=== PATIENT | female | born 1960 | race Caucasian/White ===

== ENCOUNTER → 2017-10-13 | Outpatient (CLI) | payer BC ==
[~2017-10-13] MED LIST: ADDERALL20 MG PO; CEPHALEXIN500 M1 PO; COLACE 100100 MG/CAP PO; LEVAQUIN 5500 MG/TA1 PO; LOVENOX 4040 MG/0.4 SQ; OXYCONTIN15 MG; PROZAC 20MG20 MG PO; ROXICODONE 55 MG/TAB PO; ULTRAM 50MG TAB50 MG; ULTRAM 50MG TAB50 MG PO; WELLBUTRIN XL150 MG PO
== END ==
LOC: MC.RAD 07:26
DX: Z12.31 Encounter for screening mammogram for malignant neoplasm of breast (principal)

== ENCOUNTER → 2019-02-01 | Outpatient (CLI) | payer BC | LOC: MC.RAD 07:29 | DX: Z12.31 Encounter for screening mammogram for malignant neoplasm of breast (principal) ==

== ENCOUNTER → 2019-11-10 | Outpatient (CLI) | payer BC | LOC: ZCOL.LAB 15:45 | DX: Z20.828 Contact with and (suspected) exposure to other viral communicable diseases (principal) ==

== ENCOUNTER 2020-08-30 09:25 | Observation (INO) | payer BC ==
[~2020-08-30] VITALS: Ht 162.7 cm; Wt 75.9 kg
[2020-08-30 09:59] LABS: HEMOGLOBIN 10.5 g/dl (12.5-16.0); MEAN CELL VOLUME 86 fl (80.0-100.0); MEAN CORPUSCULAR HEMOGLOBIN 28 pg (27.0-31.0); MEAN CORPUSCULAR HGB CONC 33 g/dl (33.0-37.0); MEAN PLATELET VOLUME 9.4 fl (7.4-10.4); PLATELET COUNT 505 K/mm3 (130-400); RED BLOOD COUNT 3.74 M/mm3 (4.10-5.30); REDCELL DISTRIBUTION WIDTH-CV 13.6 % (11.5-14.5)
[2020-08-30 10:04] LABS: HEMATOCRIT 32.1 % (37.0-47.0)
[2020-08-30 10:06] LABS: INR 1.3 (0.8-3.0); PROTHROMBIN TIME 14.1 SECONDS (9.7-12.8)
[2020-08-30 10:09] LABS: ALANINE AMINOTRANSFERASE 31 U/L (4-34); ALBUMIN 3.3 gm/dL (3.5-5.0); ALKALINE PHOSPHATASE 185 U/L (50-136); ANION GAP 4 mmol/L (7-16); AST,SGOT 91 U/L (15-37); BILIRUBIN,TOTAL 0.8 mg/dL (0.0-1.0); BLOOD UREA NITROGEN 32 mg/dL (7-17); CALCIUM 10.5 mg/dL (8.4-10.2); CARBON DIOXIDE 29 mmol/L (22-30); CHLORIDE 107 mmol/L (98-107); CREATININE, serum 0.89 (0.52-1.25); GLUCOSE 113 mg/dL (74-106); POTASSIUM 3.8 mmol/L (3.4-5.0); SODIUM 139 mmol/L (137-145); TOTAL PROTEIN 7.3 gm/dL (6.4-8.2)
[2020-08-30 10:25] LABS: TROPONIN-I < 0.012 ng/mL (0.000-0.035)
[2020-08-30 10:32] LABS: HYPOCHROMIA 1+; LYMPHOCYTE 12 % (20.0-51.0); NEUTROPHILS 82 % (42.0-75.2); PLATELET ESTIMATE INCREASED (NORMAL)
[2020-08-30 10:34] LABS: ERYTHROCYTE SEDIMENTATION RATE 76 mm/hr (0-30)
[2020-08-30 10:41] LABS: C-REACTIVE PROTEIN 35.1 mg/dL (0.0-0.9)
[2020-08-30] MEDS ORDERED: LASIX 80MG TABL80 MG PO (15:35)
[2020-08-30] MEDS ORDERED: TOPROL XL 25MG25 MG PO (15:35)
[2020-08-30] MEDS ORDERED: K-TAB20 PO (15:35)
[2020-08-30] MEDS ORDERED: ESTRACE0.1 MG/GM VG (15:37)
[2020-08-30 17:54] VITALS: BP 113/61; PULSE 96; TEMP 98.5
--- NOTE | 2020-08-30 18:13 | NUR ---
Pt recently arrived to the floor from ED with her spouse. Pt is alert and oriented although drowsy. She got PRN pain medication as she transferred to her bed the the room by the ED nurse. Dr Singh currently in the room seeing pt
[2020-08-30 19:53] VITALS: BP 112/49; PULSE 94; TEMP 97.7
--- NOTE | 2020-08-30 20:00 | NUR ---
Pt. sitting up in be. Pt. is a&XO3, assessment complete. INT to lt. ac patent. Pt. denies pain or other needs, call light within reach.
[2020-08-30 23:02] LABS: MUCOUS Present /lpf; PH 5 (5-8); SQUAMOUS EPITHELIAL 0-2 /hpf; URINE APPEARANCE Hazy; URINE BACTERIA None Seen /hpf; URINE BILIRUBIN Negative (NEGATIVE); URINE BLOOD Negative (NEGATIVE); URINE COLOR Yellow; URINE GLUCOSE Negative (NEGATIVE); URINE KETONE Negative (NEGATIVE); URINE LEUKOCYTE ESTERASE Negative (NEGATIVE); URINE NITRATE Negative (NEGATIVE); URINE PROTEIN(semi-quant) Negative (NEGATIVE); URINE RBC 0-2 /hpf
[2020-08-30 23:11] LABS: COLLECTION METHOD CLEAN CATCH
[2020-08-31] VITALS (7 sets, daily range): BP systolic 102–127; BP diastolic 40–62; PULSE 69–103; TEMP 97–98.5
[2020-08-31 06:28] LABS: HEMOGLOBIN 10.4 g/dl (12.5-16.0); MEAN CELL VOLUME 87 fl (80.0-100.0); MEAN CORPUSCULAR HEMOGLOBIN 28 pg (27.0-31.0); MEAN CORPUSCULAR HGB CONC 32 g/dl (33.0-37.0); MEAN PLATELET VOLUME 9.8 fl (7.4-10.4); PLATELET COUNT 524 K/mm3 (130-400); RED BLOOD COUNT 3.71 M/mm3 (4.10-5.30); REDCELL DISTRIBUTION WIDTH-CV 13.9 % (11.5-14.5)
[2020-08-31 06:36] LABS: HEMATOCRIT 32.1 % (37.0-47.0)
[2020-08-31 06:39] LABS: ALBUMIN 3.3 gm/dL (3.5-5.0); BILIRUBIN,TOTAL 0.5 mg/dL (0.0-1.0); CALCIUM 10.5 mg/dL (8.4-10.2); CREATININE, serum 1.09 (0.52-1.25); TOTAL PROTEIN 7.4 gm/dL (6.4-8.2)
--- NOTE | 2020-08-31 10:00 | NUR ---
Initial visit; Patient appears to be experiencing some difficulty describing her health issues. Her says they haven't made any decisions at this time but both were receptive to prayer. Game Producer offered comfort and prayer and will continue to look in on them.
--- NOTE | 2020-08-31 10:45 | NUR ---
Pt doing well so far this morning. Some left side pain which she states the [place] is helping with. Pt has showered already. Aware that she is to not have anything to eat or drink. Consent signed for procedure this afternoon. at bedside
--- NOTE | 2020-08-31 14:15 | NUR ---
Pt off the floor for scopes
--- NOTE | 2020-08-31 15:41 | NUR ---
PT back to her room, she is alert and oriented although very chatty. Oriented pt regarding post scope diet. Her daughter and are in the room and did visit with the physician after the scope. VSS with no complaints
[2020-08-31] MEDS ORDERED: NORCO 325 MG-51 TAB PO (15:59)
--- NOTE | 2020-08-31 16:07 | NUR ---
KRISTY met with the patient, her (Dru, ph#[phone]), and daughter (Fozia) to discuss dischare plan. The patient lives in [place] with her . She reports independence with ADLs and has a walker available to her, if needed. The patient's PCP is Dr. Josie Traore and [facility]. She reports no difficulties obtaining her meds. The patient does not have a DPOA-HC and she was not interested in completing one while here. The patient plans to return home with her upon discharge. No additional needs at this time. *Discharge plan: home with *
[2020-08-31] MEDS ORDERED: ZOFRAN ODT4 MG PO (16:16)
--- NOTE | 2020-08-31 17:29 | NUR ---
Reviewed discharge instructions to include follow up appointments, prescriptions and lab work. INT removed from left forearm/AC area. in the room. Pt getting dressed. Informed them to ring the call light when she is ready to leave
[2020-09-04] MEDS ORDERED: ASPIRIN 81M81 MG/TA2 PO (07:45)
== END 2020-08-31 17:49 | disposition home or self-care (01) ==
LOC: COL.ER 09:25 → SURG 13:30
PROVIDERS: Family Medicine; Physician Assistant; ADMIT Student in an Organized Health Care Education/Training Program
DX: C78.5 Secondary malignant neoplasm of large intestine and rectum (principal); C78.7 Secondary malignant neoplasm of liver and intrahepatic bile duct; G89.3 Neoplasm related pain (acute) (chronic); R18.8 Other ascites; J90 Pleural effusion, not elsewhere classified; E87.70 Fluid overload, unspecified; R94.5 Abnormal results of liver function studies; F32.9 Major depressive disorder, single episode, unspecified; F90.9 Attention-deficit hyperactivity disorder, unspecified type; Z20.822 Contact with and (suspected) exposure to COVID-19; Z85.43 Personal history of malignant neoplasm of ovary; Z92.21 Personal history of antineoplastic chemotherapy; Z86.711 Personal history of pulmonary embolism; Z79.01 Long term (current) use of anticoagulants; Z79.899 Other long term (current) drug therapy; Z79.82 Long term (current) use of aspirin; Z98.0 Intestinal bypass and anastomosis status
CPT/HCPCS: G0378; J1170; J1940; J2405; J2704; J7030; Q9967

== ENCOUNTER → 2020-09-04 | Outpatient (CLI) | payer BC ==
[~2020-09-04] VITALS: Ht 162.6 cm; Wt 79.2 kg
[~2020-09-04] MED LIST changes: +ASPIRIN 81M81 MG/TA2 PO; +DECADRON 4MG TAB4 MG PO; +ESTRACE0.1 MG/GM VG; +K-TAB20 PO; +LASIX 80MG TABL80 MG PO; +MS CONTIN 115 MG/TAB PO; +NARCAN4 MG NS; +NORCO 325 MG-51 TAB PO; +SENNA-LAX8.6 MG PO; +TOPROL XL 25MG25 MG PO; +ZOFRAN ODT4 MG PO
[2020-09-04 14:29] VITALS: BP 131/82; PULSE 131
== END ==
LOC: COL.RAD 14:05
DX: R18.0 Malignant ascites (principal)
CPT/HCPCS: 19804

== ENCOUNTER 2020-09-13 14:00 | Emergency (ER) | payer BC ==
[~2020-09-13] VITALS: Ht 160 cm; Wt 81.8 kg
[~2020-09-13 14:00] MED LIST changes: -DECADRON 4MG TAB4 MG PO; -MS CONTIN 115 MG/TAB PO; -NARCAN4 MG NS; -SENNA-LAX8.6 MG PO
[2020-09-13 14:03] VITALS: TEMP 97.7
[2020-09-13 15:08] LABS: MEAN CELL VOLUME 87 fl (80.0-100.0); MEAN CORPUSCULAR HGB CONC 32 g/dl (33.0-37.0); MEAN PLATELET VOLUME 9.2 fl (7.4-10.4); PLATELET COUNT 662 K/mm3 (130-400); RED BLOOD COUNT 3.03 M/mm3 (4.10-5.30); REDCELL DISTRIBUTION WIDTH-CV 15.5 % (11.5-14.5)
[2020-09-13 15:18] LABS: HEMATOCRIT 26.2 % (37.0-47.0); HEMOGLOBIN 8.5 g/dl (12.5-16.0); MEAN CORPUSCULAR HEMOGLOBIN 28 pg (27.0-31.0)
[2020-09-13 15:20] LABS: ALANINE AMINOTRANSFERASE 149 U/L (4-34); ALBUMIN 2.8 gm/dL (3.5-5.0); ALKALINE PHOSPHATASE 370 U/L (50-136); ANION GAP 4 mmol/L (7-16); AST,SGOT 462 U/L (15-37); BILIRUBIN,TOTAL 0.6 mg/dL (0.0-1.0); BLOOD UREA NITROGEN 58 mg/dL (7-17); CALCIUM 9.9 mg/dL (8.4-10.2); CARBON DIOXIDE 27 mmol/L (22-30); CHLORIDE 104 mmol/L (98-107); CREATININE, serum 0.93 (0.52-1.25); GLUCOSE 117 mg/dL (74-106); LIPASE 145 U/L (23-300); POTASSIUM 5.3 mmol/L (3.4-5.0); SODIUM 135 mmol/L (137-145); TOTAL PROTEIN 6.3 gm/dL (6.4-8.2)
[2020-09-13] MEDS ORDERED: DECADRON 4MG TAB4 MG PO (15:32)
[2020-09-13 15:33] LABS: TROPONIN-I < 0.012 ng/mL (0.000-0.035)
[2020-09-13] MEDS ORDERED: MS CONTIN 115 MG/TAB PO (15:33)
[2020-09-13] MEDS ORDERED: NARCAN4 MG NS (15:34)
[2020-09-13] MEDS ORDERED: SENNA-LAX8.6 MG PO (15:35)
[2020-09-13 15:48] LABS: INR 1.3 (0.8-3.0); PROTHROMBIN TIME 14.4 SECONDS (9.7-12.8)
[2020-09-13 16:25] LABS: LYMPHOCYTE 2 % (20.0-51.0); NEUTROPHILS 93 % (42.0-75.2); NUCLEATED RED BLOOD CELL 7 (0-6)
[2020-09-13 16:26] LABS: TARGET CELLS 2+
[2020-09-13 16:27] LABS: ANISOCYTOSIS 1+; HYPOCHROMIA 2+
[2020-09-13 16:28] LABS: HYPERSEGMENTED POLYS PRESENT; PLATELET ESTIMATE INCREASED (NORMAL)
[2020-09-13 16:42] LABS: SCHISTOCYTES 1+
[2020-09-13 17:18] LABS: COLLECTION METHOD CLEAN CATCH
[2020-09-13 17:40] LABS: MUCOUS Present /lpf; PH 5 (5-8); URINE APPEARANCE Hazy; URINE BACTERIA None Seen /hpf; URINE BILIRUBIN Negative (NEGATIVE); URINE BLOOD 2+ (NEGATIVE); URINE COLOR Yellow; URINE GLUCOSE Negative (NEGATIVE); URINE KETONE Negative (NEGATIVE); URINE LEUKOCYTE ESTERASE 1+ (NEGATIVE); URINE NITRATE Negative (NEGATIVE); URINE PROTEIN(semi-quant) 2+ (NEGATIVE); URINE UROBILINOGEN Negative (NEGATIVE)
[2020-09-13 17:57] LABS: MEAN CELL VOLUME 88 fl (80.0-100.0); MEAN CORPUSCULAR HGB CONC 32 g/dl (33.0-37.0); MEAN PLATELET VOLUME 9.3 fl (7.4-10.4); PLATELET COUNT 594 K/mm3 (130-400); RED BLOOD COUNT 2.64 M/mm3 (4.10-5.30); REDCELL DISTRIBUTION WIDTH-CV 15.4 % (11.5-14.5)
[2020-09-13 18:04] LABS: HEMATOCRIT 23.1 % (37.0-47.0); HEMOGLOBIN 7.3 g/dl (12.5-16.0); MEAN CORPUSCULAR HEMOGLOBIN 28 pg (27.0-31.0)
[2020-09-13 19:34] VITALS: BP 123/65; PULSE 102
[2020-09-14 16:11] LABS: PATHOLOGY DIFF REVIEW OK
== END 2020-09-13 19:34 | disposition short-term general hospital (02) ==
LOC: COL.ER 14:00
PROVIDERS: Emergency Medicine
DX: K92.2 Gastrointestinal hemorrhage, unspecified (principal); E87.2 Acidosis; F32.9 Major depressive disorder, single episode, unspecified; Z79.899 Other long term (current) drug therapy
CPT/HCPCS: C9113; J2405; J2543; J7030; J7120; P9016